=== PATIENT | male | born 1965 | race Caucasian/White ===

== ENCOUNTER 2017-02-03 22:04 | Inpatient (IN) | payer BC ==
[~2017-02-03] VITALS: Ht 185.4 cm; Wt 83.5 kg
[2017-02-03] MEDS ORDERED: NKM (22:15)
--- NOTE | 2017-02-03 22:43 | Emergency Room Report ---
History of Present Illness General Chief Complaint: Chest Pain Source: Patient Present Illness HPI 51-year-old male with hypertension, HIV positive on therapy, viral load undetectable, p/w chest pain for 2 hours. Chest pain started while he was in bed. Localized to substernal area, radiates to left arm, no radiation to back or other areas, sharp in nature, gradual in onset, lasted 120 min, few intermittent episodes. Occurred on rest. Denies SOB. Denies palpitations, diaphoresis, n/v. This is the first occurrence of chest pain. Denies fever, chills, cough, abd pain. Denies trauma. Last stress test was last week and the patient does not know his results yet Patient has never had a cardiac catheterization. Denies smoking, no family history of cardiac disease at a young age. Allergies: Coded Allergies: No Known Allergies (Verified Allergy, Unknown, 03/28/10) Patient History Past Medical History: see triage record Past Surgical History: none Pertinent Family History: none Reviewed Nursing Documentation: PMH: Agreed, PSxH: Agreed Review of Systems All Other Systems: negative except mentioned in HPI Physical Exam Vital Signs Date Time Temp Pulse Resp B/P (MAP) Pulse Ox O2 Delivery O2 Flow Rate FiO2 02/03/17 22:13 96.6 81 22 128/97 97 Room Air Sp02 EP Interpretation: reviewed, normal General Appearance: alert, GCS 15, non-toxic, moderate distress Head: normocephalic, atraumatic Eyes: bilateral eye normal inspection, bilateral eye PERRL, bilateral eye EOMI ENT: normal ENT inspection, normal pharynx, normal voice, moist mucus membranes Neck: normal inspection, full range of motion, supple Respiratory: normal inspection, lungs clear, normal breath sounds, no respiratory distress, no retraction, no wheezing, speaking full sentences, chest symmetrical Cardiovascular #1: normal inspection, regular rate, rhythm, no edema, normal capillary refill Cardiovascular #2: 2+ radial (R), 2+ radial (L) Gastrointestinal: normal inspection, non tender, soft, non-distended, no guarding Genitourinary: no CVA tenderness Musculoskeletal: normal inspection, back normal, normal range of motion, non- tender Neurologic: normal inspection, alert, oriented x3, responsive, motor strength/ tone normal, sensory intact, normal gait, speech normal Psychiatric: judgement/insight normal, memory normal, anxious Skin: normal inspection, normal color, no rash, warm/dry, well hydrated, normal turgor Medical Decision Making Diagnostic Impression: Primary Impression: Acute coronary syndrome ER Course 51-year-old male with chest pain DDX: ACS vs. CHF vs. pneumonia vs. gastritis/GERD vs. pneumothorax PE on differential however at this time there are other more likely diagnoses. Plan: IV access, obtain labs including troponin, EKG, CXR ASA, pain control with nitro / morphine Anticipate admission ER course: Patient was treated with ASA. Patient has remained on a monitor, HD stable, chest pain improved. Disposition: Patient requires admission for chest pain. Due to patient's history and comorbidities, patient has increased risk of acute cardiac event. Patient requires admission for further workup, serial troponin, and possible stress test/cath inpatient. D/W hospitalist Dr Kiran who has accepted patient for admission Please note that this Emergency Department Report was dictated using [email or web address] planner technology software, occasionally this can lead to erroneous entry secondary to interpretation by the dictation equipment. EKG Diagnostic Results EP Interpretation: Yes Rate: normal Rhythm: NSR ST Segments: No acute changes ASA given to patient: Yes Rhythm Strip EP Interpretation: Yes Rate: 80 Rhythm: NSR, no PVCs, no ectopy Chest X-ray CXR: Ordered: Yes 1 view Indication: Chest pain EP interpretation: Yes Interpretation: No consolidation, no effusion, no PTX, no acute cardiopulmonary disease Impression: No acute disease Electronically signed by Dimas Hendricks MD Laboratory Tests Test 02/03/17 22:20 White Blood Count 5.1 K/UL (4.8-10.8) Red Blood Count 4.56 M/UL (4.70-6.10) L Hemoglobin 14.5 G/DL (14.2-18.0) Hematocrit 45.6 % (42.0-52.0) Mean Corpuscular Volume 100 FL (80-99) H Mean Corpuscular Hemoglobin 31.8 PG (27.0-31.0) H Mean Corpuscular Hemoglobin Concent 31.8 G/DL (32.0-36.0) L Red Cell Distribution Width 11.3 % (11.6-14.8) L Platelet Count 159 K/UL (150-450) Mean Platelet Volume 6.2 FL (6.5-10.1) L Neutrophils (%) (Auto) 34.1 % (45.0-75.0) L Lymphocytes (%) (Auto) 54.5 % (20.0-45.0) H Monocytes (%) (Auto) 7.1 % (1.0-10.0) Eosinophils (%) (Auto) 2.9 % (0.0-3.0) Basophils (%) (Auto) 1.4 % (0.0-2.0) Sodium Level 142 MMOL/L (136-145) Potassium Level 3.8 MMOL/L (3.5-5.1) Chloride Level 107 MMOL/L (98-107) Carbon Dioxide Level 29 MMOL/L (21-32) Anion Gap 7 mmol/L (5-15) Blood Urea Nitrogen 30 mg/dL (7-18) H Creatinine 1.4 MG/DL (0.55-1.30) H Estimate Glomerular Filtration Rate 53.0 mL/min (>60) Glucose Level 116 MG/DL (74-106) H Calcium Level 9.0 MG/DL (8.5-10.1) Total Bilirubin 0.4 MG/DL (0.2-1.0) Aspartate Amino Transferase (AST) 20 U/L (15-37) Alanine Aminotransferase (ALT) 26 U/L (12-78) Alkaline Phosphatase 61 U/L (46-116) Total Creatine Kinase 153 U/L (26-308) Creatine Kinase MB 2.0 NG/ML (0.0-3.6) Creatine Kinase MB Relative Index 1.3 Troponin I 0.000 ng/mL (0.000-0.056) Pro-B-Type Natriuretic Peptide 47 pg/mL (0-125) Total Protein 7.0 G/DL (6.4-8.2) Albumin 3.5 G/DL (3.4-5.0) Globulin 3.5 g/dL Albumin/Globulin Ratio 1.0 (1.0-2.7) Last Vital Signs Date Time Temp Pulse Resp B/P (MAP) Pulse Ox O2 Delivery O2 Flow Rate FiO2 02/03/17 22:13 96.6 81 22 128/97 97 Room Air Disposition: ADMITTED INPATIENT Condition: Serious Dimas Hendricks M.D. Feb 03, 2017 22:43
[2017-02-03 23:09] LABS: BASOPHILS % (AUTO) 1.4 % (0.0-2.0); EOSINOPHILS % (AUTO) 2.9 % (0.0-3.0); LYMPHOCYTES % (AUTO) 54.5 % (20.0-45.0); MEAN CORPUSCULAR HEMOGLOBIN 31.8 PG (27.0-31.0); MEAN CORPUSCULAR HGB CONC 31.8 G/DL (32.0-36.0); MEAN CORPUSCULAR VOLUME 100 FL (80-99); MEAN PLATELET VOLUME 6.2 FL (6.5-10.1); MONOCYTES % (AUTO) 7.1 % (1.0-10.0); NEUTROPHILS % (AUTO) 34.1 % (45.0-75.0); PLATELET COUNT 159 K/UL (150-450); RED BLOOD COUNT 4.56 M/UL (4.70-6.10); RED CELL DISTRIBUTION WIDTH 11.3 % (11.6-14.8); WHITE BLOOD COUNT 5.1 K/UL (4.8-10.8)
[2017-02-03 23:28] LABS: ALANINE AMINOTRANSFERASE 26 U/L (12-78); ANION GAP 7 mmol/L (5-15); ASPARTATE AMINO TRANSFERASE 20 U/L (15-37); CARBON DIOXIDE 29 MMOL/L (21-32); CHLORIDE 107 MMOL/L (98-107); CREATININE 1.4 MG/DL (0.55-1.30); POTASSIUM 3.8 MMOL/L (3.5-5.1); SODIUM 142 MMOL/L (136-145)
[2017-02-04] VITALS (8 sets, daily range): BP systolic 112–133; BP diastolic 72–95
[2017-02-04] MEDS ORDERED: DESCOVY 200-251 EACH PO (03:27)
[2017-02-04] MEDS ORDERED: TIVICAY50 MG ORAL (03:27)
[2017-02-04] MEDS ORDERED: TRAZODONE HCL50 MG ORAL (03:27)
[2017-02-04] MEDS ORDERED: VOLTAREN50 MG PO (03:27)
--- NOTE | 2017-02-04 11:02 | Diagnostic Imaging Report ---
Indication: PAIN chest pain Technique: One view of the chest Comparison: none Findings: Lungs and pleural spaces are clear. Heart size is normal. Impression: No acute process
--- NOTE | 2017-02-04 13:08 | Cardiology Progress Note ---
Assessment/Plan Assessment/Plan [id number] Objective Last 24 Hour Vital Signs Date Time Temp Pulse Resp B/P (MAP) Pulse Ox O2 Delivery O2 Flow Rate FiO2 02/04/17 12:00 97.5 89 21 112/77 96 Room Air 02/04/17 08:00 97.7 70 19 112/72 96 Room Air 02/04/17 08:00 67 02/04/17 04:00 65 02/04/17 04:00 97.7 66 20 112/73 97 Room Air 02/04/17 01:30 75 02/04/17 01:30 97.7 77 20 123/80 94 Room Air 02/04/17 01:20 97.4 84 22 126/88 95 Room Air 02/04/17 01:20 77 19 127/90 95 Room Air 02/04/17 00:12 97.4 84 22 126/88 95 Room Air 02/03/17 22:15 81 22 Room Air 02/03/17 22:13 96.6 81 22 128/97 97 Room Air Intake and Output 02/04/17 02/05/17 19:00 07:00 # Bowel Movements 1 Laboratory Tests Test 02/03/17 22:20 02/04/17 04:15 02/04/17 12:00 White Blood Count 5.1 K/UL (4.8-10.8) Red Blood Count 4.56 M/UL (4.70-6.10) L Hemoglobin 14.5 G/DL (14.2-18.0) Hematocrit 45.6 % (42.0-52.0) Mean Corpuscular Volume 100 FL (80-99) H Mean Corpuscular Hemoglobin 31.8 PG (27.0-31.0) H Mean Corpuscular Hemoglobin Concent 31.8 G/DL (32.0-36.0) L Red Cell Distribution Width 11.3 % (11.6-14.8) L Platelet Count 159 K/UL (150-450) Mean Platelet Volume 6.2 FL (6.5-10.1) L Neutrophils (%) (Auto) 34.1 % (45.0-75.0) L Lymphocytes (%) (Auto) 54.5 % (20.0-45.0) H Monocytes (%) (Auto) 7.1 % (1.0-10.0) Eosinophils (%) (Auto) 2.9 % (0.0-3.0) Basophils (%) (Auto) 1.4 % (0.0-2.0) Sodium Level 142 MMOL/L (136-145) Potassium Level 3.8 MMOL/L (3.5-5.1) Chloride Level 107 MMOL/L (98-107) Carbon Dioxide Level 29 MMOL/L (21-32) Anion Gap 7 mmol/L (5-15) Blood Urea Nitrogen 30 mg/dL (7-18) H Creatinine 1.4 MG/DL (0.55-1.30) H Estimat Glomerular Filtration Rate 53.0 mL/min (>60) Glucose Level 116 MG/DL (74-106) H Calcium Level 9.0 MG/DL (8.5-10.1) Total Bilirubin 0.4 MG/DL (0.2-1.0) Aspartate Amino Transf (AST/SGOT) 20 U/L (15-37) Alanine Aminotransferase (ALT/SGPT) 26 U/L (12-78) Alkaline Phosphatase 61 U/L (46-116) Total Creatine Kinase 153 U/L (26-308) Creatine Kinase MB 2.0 NG/ML (0.0-3.6) Creatine Kinase MB Relative Index 1.3 Troponin I 0.000 ng/mL (0.000-0.056) 0.097 ng/mL (0.000-0.056) Pending Pro-B-Type Natriuretic Peptide 47 pg/mL (0-125) Total Protein 7.0 G/DL (6.4-8.2) Albumin 3.5 G/DL (3.4-5.0) Globulin 3.5 g/dL Albumin/Globulin Ratio 1.0 (1.0-2.7) MAXIMO CHILDERS Feb 04, 2017 13:08
[2017-02-04 14:49] LABS: MEAN CORPUSCULAR HEMOGLOBIN 32.3 PG (27.0-31.0); MEAN CORPUSCULAR HGB CONC 32.7 G/DL (32.0-36.0); MEAN CORPUSCULAR VOLUME 99 FL (80-99); MEAN PLATELET VOLUME 6.4 FL (6.5-10.1); PLATELET COUNT 194 K/UL (150-450); RED BLOOD COUNT 5.04 M/UL (4.70-6.10); RED CELL DISTRIBUTION WIDTH 11.1 % (11.6-14.8); WHITE BLOOD COUNT 3.8 K/UL (4.8-10.8)
[2017-02-04] MEDS ORDERED: Heparin 25,000u/D5W 500ml 500 ML IV SCH ×2 (15:15→22:30)
[2017-02-04 15:52] LABS: BAND NEUTROPHILS % (MANUAL) 0 % (0-8); BASOPHILS % (MANUAL) 0 % (0-2); EOSINOPHILS % (MANUAL) 5 % (0-3); LYMPHOCYTES % (MANUAL) 57 % (20-45); NEUTROPHILS % (MANUAL) 31 % (45-75); PLATELET ESTIMATE ADEQUATE; TOTAL CELLS COUNTED 100
[2017-02-04 15:53] LABS: PLATELET MORPHOLOGY NORMAL
[2017-02-04] MEDS: Aspirin Baby 81mg ORAL SCH (16:08)
[2017-02-04] MEDS ORDERED: TraZODone 50mg tab ORAL PRN (21:00)
[2017-02-04] MEDS ORDERED: Dolutegravir Sodium 50mg tab ORAL SCH (21:00)
[2017-02-04] MEDS ORDERED: DESCOVY ORAL SCH (21:00)
--- NOTE | 2017-02-04 21:00 | History and Physical Report ---
DATE OF ADMISSION: 02/03/2017 CHIEF COMPLAINT: Chest pain. HISTORY OF PRESENT ILLNESS: This 51-year-old man with HIV, complained of two hours of chest pain. He presented to the emergency department. The pain was in the substernal area radiating to the left arm. He had pain for about two hours. He had no shortness of breath or palpitations. No diaphoresis. The pain resolved. He was admitted for cardiac evaluation. Since admission, the troponin went from normal to mildly elevated. PAST MEDICAL HISTORY: The patient has HIV, but states his T-cells are normal and viral load is nondetectable. He has no history of hypertension, diabetes, smoking or hyperlipidemia. He has no history of prior cardiac disease. There is no family history of cardiac disease. He has history of osteoarthritis in the knees and shoulders and has had arthroscopy in the past. He has no history of HIV-related illness or tumors. MEDICATIONS: Reviewed and reconciled. ALLERGIES: None. REVIEW OF SYSTEMS: Otherwise, unremarkable. PHYSICAL EXAMINATION: GENERAL: The patient is a muscular, well developed and well nourished and appears to be his stated age. VITAL SIGNS: Normal. HEENT: Head is normocephalic. NECK: No jugular venous distention. CHEST: Clear. CARDIAC: Rhythm is regular without murmur, rub, or gallop. ABDOMEN: Soft and nontender. Liver and spleen not enlarged. EXTREMITIES: No clubbing, cyanosis, or edema. LABORATORY AND DIAGNOSTIC DATA: Chest x-ray is clear. Troponin isabela from 0.02 to 0.01 and then to 0.4. Abnormal laboratory tests included blood sugar 116 and creatinine 1.4. IMPRESSION: 1. Acute coronary syndrome with elevated troponin. 2. Human immunodeficiency virus infection with control of virus on medication. 3. Chronic kidney disease stage 2. 4. Osteoarthritis. PLAN: The patient had been evaluated by Cardiology. Repeat troponin will be obtained as well as an echocardiogram. He may require a further testing in view of the rising troponin. Alon Kiran M.D. DR: ISH JOB#: [id number] CC: Alon Kiran M.D.; Fax#: [phone] MAXIMO CHILDERS M.D. ; FAX#: [phone]
[2017-02-04] MEDS ORDERED: Heparin 5000 units/ml inj IV ONE (22:30)
[2017-02-04] MEDS: Heparin 25,000u/D5W 500ml 500 ML IV SCH (22:41)
[2017-02-05] VITALS: BP 111/78
--- NOTE | 2017-02-05 06:01 | Consultation ---
DATE OF CONSULTATION: 02/04/2017 CARDIOLOGY CONSULTATION CONSULTING PHYSICIAN: Unruly Hull M.D. REFERRING PHYSICIAN: Alon Kiran M.D. ATTENDING PHYSICIAN: Alon Kiran M.D. REASON FOR REFERRAL: Chest pain. HISTORY OF PRESENT ILLNESS: This is a 51-year-old gentleman who apparently was experiencing some discomfort in the chest last night. He took his blood pressure. His blood pressure was elevated. He started having some sensation on the lateral aspect of his left arm, so he came to the emergency room. He had the discomfort for at least 4 hours, possibly longer. He fell asleep eventually. This morning when he woke up here, he did not have any discomfort. There is no PND or orthopnea. There is no palpitation. No shortness of breath on exertion. He is not as active as he used to be, although he used to be able to mess around on a regular basis up to approximately 6 months ago and now because of his knee and arm issues, he is not doing that. 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 He has never had this discomfort before. He did not have any relieving or exacerbating factors noted with the episode of chest pain. PAST MEDICAL HISTORY: Positive only for HIV. No other medical problems. He may have a touch of arthritis. ALLERGIES: He is not allergic to any medications. SOCIAL HISTORY: He does not smoke at this time. Socially, he drinks alcoholic beverages. Last time he smoke was approximately 1 year ago. REVIEW OF SYSTEMS: GASTROINTESTINAL: Negative. GENITOURINARY: Negative. PULMONARY: Negative. CONSTITUTIONAL: Negative. NEUROLOGICAL: Numbness and tingling sensation in the lateral aspect of both of his feet. PHYSICAL EXAMINATION: GENERAL: Physical examination shows him to be a middle-aged gentleman, in no respiratory distress. NECK: Supple. No jugular venous distention. No abdominojugular reflux noted. LUNGS: Clear to auscultation and percussion. CARDIAC EXAMINATION: S1 is normal. S2 is normal. Regular rate and rhythm. No heaves, thrills, gallops, or rubs noted. ABDOMEN: Soft and nontender. Positive bowel sounds. EXTREMITIES: There is no edema, clubbing, or cyanosis. Chest wall is nontender to palpation. LABORATORY AND DIAGNOSTIC DATA: White count of 5.1, hemoglobin 14.5, and platelet count of 159. Sodium is 142, potassium 3.8, chloride 107, bicarbonate 29, BUN 30, creatinine 1.4, and glucose of 116. Liver function tests were all normal. Troponin was 0.00, the second one was 0.097, and third one is pending. Liver function tests were negative. His chest x-ray performed in the emergency room showed no acute processes. He did have an EKG performed in the emergency room that showed really no significant ST or T-wave abnormalities of a significant degree. ASSESSMENT AND PLAN: 1. Chest pain. 2. Abnormal cardiac enzymes. 3. History of human immunodeficiency virus. Dr. Kiran, this patient was seen in cardiac consultation. The patient is not experiencing any chest pain. His chest pain lasted approximately 4 hours. His first set of cardiac enzymes were negative, however, the second one is mildly elevated and third one is pending at this time. I think he needs to have further testing performed. He reportedly had a stress test at his doctor's office. He does not know the results. I have asked him to have his doctor send a copy of that results to me. Nevertheless, because of his abnormality on the second cardiac enzyme, I think further testing is warranted including an echocardiogram and may require other testing as well. I will follow the patient with you. Unruly Hull M.D. DR: ELNORE JOB#: [id number] CC:
[2017-02-05 07:03] LABS: ALANINE AMINOTRANSFERASE 31 U/L (12-78); ALBUMIN/GLOBULIN RATIO 0.9 (1.0-2.7); ANION GAP 9 mmol/L (5-15); ASPARTATE AMINO TRANSFERASE 23 U/L (15-37); CALCIUM 9.4 MG/DL (8.5-10.1); CARBON DIOXIDE 26 MMOL/L (21-32); CHLORIDE 107 MMOL/L (98-107); CHOLESTEROL 188 MG/DL (< 200); CHOLESTEROL/HDL RATIO 2.2 (3.3-4.4); CREATININE 1.2 MG/DL (0.55-1.30); GLOMERULAR FILTRATION RATE > 60 mL/min (>60); SODIUM 142 MMOL/L (136-145); THYROID STIMULATING HORMONE 2.098 uiU/mL (0.360-3.740); TOTAL PROTEIN 7.6 G/DL (6.4-8.2)
[2017-02-05] MEDS ORDERED: Heparin 5000 units/ml inj INJ ONE (07:30)
[2017-02-05] MEDS: Heparin 25,000u/D5W 500ml 500 ML IV SCH ×3 (07:53→16:16)
[2017-02-05 08:00] VITALS: BP 121/82
[2017-02-05] MEDS: Aspirin Baby 81mg ORAL SCH (08:10)
[2017-02-05 12:00] VITALS: BP 122/81
--- NOTE | 2017-02-05 12:02 | Cardiology Progress Note ---
Assessment/Plan Assessment/Plan 1. Chest pain./ nstemi 2. Abnormal cardiac enzymes. 3. History of human immunodeficiency virus. some ekg strip supposedly form his stress test at him pmd office not st depression and afib? no interpretation available his trop min increased over yest ekg with some t inversion inferior lead i have recommended and place pt name of [facility] they are full family have asked about possible [facility] or other hospital which they will have to find a flooring salesperson that would accept so we can arrange transfer there if desired or the other option [facility] Ecotrin statin heparin for now follwo trop curve and serial ekg Subjective Cardiovascular: Denies: chest pain, lightheadedness, palpitations Respiratory: Denies: shortness of breath Gastrointestinal/Abdominal: Denies: abdomen distended Genitourinary: Denies: burning Objective Last 24 Hour Vital Signs Date Time Temp Pulse Resp B/P (MAP) Pulse Ox O2 Delivery O2 Flow Rate FiO2 02/05/17 08:00 97.2 108 20 121/82 97 Room Air 02/05/17 08:00 91 02/05/17 04:00 74 02/05/17 00:00 74 02/05/17 00:00 97.1 79 20 111/78 96 Room Air 02/04/17 21:19 86 02/04/17 20:00 97.1 85 20 133/95 96 Room Air 02/04/17 16:00 97.1 90 20 125/80 96 Room Air 02/04/17 16:00 88 General Appearance: alert Neck: supple Cardiovascular: normal rate, regular rhythm Respiratory/Chest: lungs clear Abdomen: normal bowel sounds, non tender, soft Extremities: no swelling Intake and Output 02/05/17 02/06/17 19:00 07:00 # Bowel Movements 1 Laboratory Tests Test 02/04/17 14:30 02/04/17 14:37 02/04/17 21:25 02/05/17 06:00 White Blood Count 3.8 K/UL (4.8-10.8) L Red Blood Count 5.04 M/UL (4.70-6.10) Hemoglobin 16.3 G/DL (14.2-18.0) Hematocrit 49.8 % (42.0-52.0) Mean Corpuscular Volume 99 FL (80-99) Mean Corpuscular Hemoglobin 32.3 PG (27.0-31.0) H Mean Corpuscular Hemoglobin Concent 32.7 G/DL (32.0-36.0) Red Cell Distribution Width 11.1 % (11.6-14.8) L Platelet Count 194 K/UL (150-450) Mean Platelet Volume 6.4 FL (6.5-10.1) L Neutrophils (%) (Auto) % (45.0-75.0) Lymphocytes (%) (Auto) % (20.0-45.0) Monocytes (%) (Auto) % (1.0-10.0) Eosinophils (%) (Auto) % (0.0-3.0) Basophils (%) (Auto) % (0.0-2.0) Differential Total Cells Counted 100 Neutrophils % (Manual) 31 % (45-75) L Lymphocytes % (Manual) 57 % (20-45) H Monocytes % (Manual) 7 % (1-10) Eosinophils % (Manual) 5 % (0-3) H Basophils % (Manual) 0 % (0-2) Band Neutrophils 0 % (0-8) Platelet Estimate Adequate Platelet Morphology Normal Red Blood Cell Morphology Normal Activated Partial Thromboplast Time 26 SEC (23-33) 32 SEC (23-33) 63 SEC (23-33) H D-Dimer 0.42 mg/L FEU (0.00-0.49) Troponin I 0.516 ng/mL (0.000-0.056) Sodium Level 142 MMOL/L (136-145) Potassium Level 4.0 MMOL/L (3.5-5.1) Chloride Level 107 MMOL/L (98-107) Carbon Dioxide Level 26 MMOL/L (21-32) Anion Gap 9 mmol/L (5-15) Blood Urea Nitrogen 18 mg/dL (7-18) Creatinine 1.2 MG/DL (0.55-1.30) Estimat Glomerular Filtration Rate > 60 mL/min (>60) Glucose Level 102 MG/DL (74-106) Calcium Level 9.4 MG/DL (8.5-10.1) Total Bilirubin 0.7 MG/DL (0.2-1.0) Aspartate Amino Transf (AST/SGOT) 23 U/L (15-37) Alanine Aminotransferase (ALT/SGPT) 31 U/L (12-78) Alkaline Phosphatase 52 U/L (46-116) Total Protein 7.6 G/DL (6.4-8.2) Albumin 3.6 G/DL (3.4-5.0) Globulin 4.0 g/dL Albumin/Globulin Ratio 0.9 (1.0-2.7) L Triglycerides Level 50 MG/DL (0-200) Cholesterol Level 188 MG/DL (< 200) LDL Cholesterol 104 mg/dL (<100) H HDL Cholesterol 86 MG/DL (40-60) H Cholesterol/HDL Ratio 2.2 (3.3-4.4) L Prostate Specific Antigen 1.0 ng/mL (0.0-4.0) Thyroid Stimulating Hormone (TSH) 2.098 uiU/mL (0.360-3.740) Total Testosterone Pending Test 02/05/17 06:21 Troponin I 0.512 ng/mL (0.000-0.056) MAXIMO CHILDERS Feb 05, 2017 12:02
--- NOTE | 2017-02-05 13:44 | Pulmonology Progress Note ---
Assessment/Plan Assessment/Plan IMPRESSION: 1. Acute coronary syndrome with elevated troponin. 2. Human immunodeficiency virus infection with control of virus on medication. 3. Chronic kidney disease stage 2. 4. Osteoarthritis. PLAN: troponins trending seen by cards heparin per rx asa hld treatment await tx to [facility] for cath Subjective HEENT: Repors: no symptoms Respiratory: Reports: no symptoms Cardiovascular: Reports: chest pain Gastrointestinal/Abdominal: Reports: no symptoms Allergies: Coded Allergies: No Known Allergies (Verified Allergy, Unknown, 03/28/10) Subjective still with intermittent cp on heparin no fever or b leeding tolerating po awaiting transfer to [facility] for cath Objective Last 24 Hour Vital Signs Date Time Temp Pulse Resp B/P (MAP) Pulse Ox O2 Delivery O2 Flow Rate FiO2 02/05/17 12:00 97.2 81 20 122/81 98 Room Air 02/05/17 08:00 97.2 108 20 121/82 97 Room Air 02/05/17 08:00 91 02/05/17 04:00 74 02/05/17 00:00 74 02/05/17 00:00 97.1 79 20 111/78 96 Room Air 02/04/17 21:19 86 02/04/17 20:00 97.1 85 20 133/95 96 Room Air 02/04/17 16:00 97.1 90 20 125/80 96 Room Air 02/04/17 16:00 88 Intake and Output 02/05/17 02/06/17 19:00 07:00 # Bowel Movements 1 General Appearance: WD/WN HEENT: atraumatic, anicteric Respiratory/Chest: lungs clear, normal breath sounds Cardiovascular: normal rate, regular rhythm Abdomen: soft, non tender, no organomegaly Skin: no rash, no lesions Neurologic/Psychiatric: no motor/sensory deficits, oriented x 3, responsive Lymphatic: no neck adenopathy, no groin adenopathy Musculoskeletal: no effusion Laboratory Tests 02/04/17 14:30: White Blood Count 3.8L, Red Blood Count 5.04, Hemoglobin 16.3, Hematocrit 49.8, Mean Corpuscular Volume 99, Mean Corpuscular Hemoglobin 32.3H, Mean Corpuscular Hemoglobin Concent 32.7, Red Cell Distribution Width 11.1L, Platelet Count 194, Mean Platelet Volume 6.4L, Neutrophils (%) (Auto) , Lymphocytes (%) (Auto) , Monocytes (%) (Auto) , Eosinophils (%) (Auto) , Basophils (%) (Auto) , Differential Total Cells Counted 100, Neutrophils % (Manual) 31L, Lymphocytes % (Manual) 57H, Monocytes % (Manual) 7, Eosinophils % (Manual) 5H, Basophils % ( Manual) 0, Band Neutrophils 0, Platelet Estimate Adequate, Platelet Morphology Normal, Red Blood Cell Morphology Normal 02/04/17 14:37: Activated Partial Thromboplast Time 26, D-Dimer 0.42 02/04/17 21:25: Activated Partial Thromboplast Time 32, Troponin I 0.516H 02/05/17 06:00: Activated Partial Thromboplast Time 63H, Sodium Level 142, Potassium Level 4.0, Chloride Level 107, Carbon Dioxide Level 26, Anion Gap 9, Blood Urea Nitrogen 18 , Creatinine 1.2, Estimat Glomerular Filtration Rate > 60, Glucose Level 102, Calcium Level 9.4, Total Bilirubin 0.7, Aspartate Amino Transf (AST/SGOT) 23, Alanine Aminotransferase (ALT/SGPT) 31, Alkaline Phosphatase 52, Total Protein 7.6, Albumin 3.6, Globulin 4.0, Albumin/Globulin Ratio 0.9L, Triglycerides Level 50, Cholesterol Level 188, LDL Cholesterol 104H, HDL Cholesterol 86H, Cholesterol/HDL Ratio 2.2L, Prostate Specific Antigen 1.0, Thyroid Stimulating Hormone (TSH) 2.098, Total Testosterone [Pending] 02/05/17 06:21: Troponin I 0.512H Current Medications Medications (Trade) Dose Ordered Sig/Audie Route PRN Reason Start Time Stop Time Status Last Admin Dose Admin Aspirin (ASA) 81 mg DAILY ORAL 02/04/17 15:30 03/06/17 15:29 02/05/17 08:10 Atorvastatin Calcium (Lipitor) 40 mg BEDTIME ORAL 02/04/17 21:00 03/06/17 20:59 02/04/17 20:33 Dextrose (Dextrose 50%) STAT PRN IV Hypoglycemia 02/04/17 03:15 03/06/17 03:14 Heparin Sodium/ Dextrose 500 ml @ 30.046 mls/ hr adjust per protocol IV 02/04/17 22:45 03/06/17 22:44 02/05/17 09:44 Patient Own Medication (Patient's Own Med) 1 ea BEDTIME ORAL 02/04/17 21:00 03/06/17 20:59 02/04/17 20:33 Patient Own Medication (Patient's Own Med) 1 ea BEDTIME ORAL 02/04/17 21:00 03/06/17 20:59 02/04/17 20:33 Trazodone HCl (Desyrel) 50 mg BEDTIME PRN ORAL Insomnia 02/04/17 21:00 03/06/17 20:59 HAIM DURAN DO Feb 05, 2017 13:44
[2017-02-05 16:00] VITALS: BP 117/75
[2017-02-05] MEDS ORDERED: Heparin 5000 units/ml inj IV ONE (16:00)
[2017-02-05] MEDS ORDERED: Tubing IV Secondary IV ONE (16:30)
[2017-02-05] MEDS ORDERED: Sterile Water Irrig 1000ml IRRIG ONE (16:30)
[2017-02-05] MEDS ORDERED: 1/2 NS 1000ml IV ONE (16:30)
[2017-02-05] MEDS ORDERED: Atorvastatin 20mg tab ORAL SCH (21:00)
--- NOTE | 2017-02-06 17:39 | Cardiology Report ---
APPROVED REPORT EXAM: Two-dimensional and M-mode echocardiogram with Doppler and color Doppler. INDICATION Chest Pain M-Mode DIMENSIONS IVSd0.6 (0.7-1.1cm)Left Atrium (MM)2.4 (1.6-4.0cm) LVDd3.5 (3.5-5.6cm)Aortic Root3.9 (2.0-3.7cm) PWd0.7 (0.7-1.1cm)Aortic Cusp Exc.2.3 (1.5-2.0cm) LVDs2.5 (2.5-4.0cm) PWs0.6 cm Normal left ventricular chamber size, systolic function and wall motion. Left ventricular ejection fraction estimated to be 50-55%. No evidence of left ventricular hypertrophy. No evidence of pericardial or pleural effusion. All other cardiac chamber sizes are within normal limits. Focal aortic valve sclerosis with adequate cusp excursion. Aortic root dialated. Thickened mitral valve leaflets with normal excursion. Mild mitral annulus and aortic root calcification. Pulmonic valve not well visualized. Normal tricuspid valve structure. IVC is normal in size and collapsible with respiration. A color flow and spectral Doppler study was performed and revealed: No aortic regurgitation. No mitral regurgitation. Mitral diastolic velocities suggest reduced left ventricular relaxation c/w diastolic dysfunction grade 1. No tricuspid regurgitation. Pulmonic regurgitation present.
--- NOTE | 2017-02-06 18:38 | Cardiology Report ---
APPROVED REPORT EKG Measurement Heart [id number] DC [id number] Normal sinus rhythm Normal ECG non specific st changes
--- NOTE | 2017-02-06 18:40 | Cardiology Report ---
APPROVED REPORT EKG Measurement Heart [id number] DC [id number] Normal sinus rhythm non specific st changes
--- NOTE | 2017-02-06 18:43 | Cardiology Report ---
APPROVED REPORT EKG Measurement Heart [id number] VA 166P22 [id number] Normal sinus rhythm Normal ECG
--- NOTE | 2017-02-07 11:21 | Diagnostic Imaging Report ---
APPROVED REPORT CPT Code: 87905 Present Symptoms Comments: Chest Pain. BILATERAL: Imaging reveals a patent deep venous system bilaterally. There is no evidence of thrombus within the femoral, popliteal or tibial segments. The greater saphenous veins are also within normal limits. Doppler indicates normal spontaneous flow within these segments.
--- NOTE | 2017-02-07 12:22 | Discharge Summary ---
Discharge Summary Hospital Course Date of Admission Feb 03, 2017 at 22:57 Date of Discharge Feb 05, 2017 at 18:40 Admitting Diagnosis ACUTE CORONARY SYNDROME HPI Gearld Lopez is a 51 year old male who was admitted on Feb 03, 2017 at 22:57 for Acute Coronary Syndrome Hospital Course dc summary #[id number] Discharge Discharge Disposition Patient was transferred to [facility] for cardiac cath Discharge Diagnoses: Discharge Instructions Discharge Instructions Special Instructions I have been assigned to complete a D/C Summary on this account. I was not involved in the patient management Yamila Santiago NP (Vanchtein) Feb 07, 2017 12:22
--- NOTE | 2017-02-08 04:46 | Discharge Summary 2 SIG ---
DATE OF ADMISSION: 02/03/2017 DATE OF DISCHARGE: 02/05/2017 REASON FOR ADMISSION: 51-year-old male with history of HIV, and chronic kidney disease stage 2, presented with a complaint of chest pain. Pain reported to be in substernal area, radiating to the left arm. Pain lasted for two hours. No associated shortness of breath. No palpitations. No diaphoresis. Pain eventually resolved. Patient was admitted to rule out acute coronary syndrome. HOSPITAL COURSE: First troponin was negative. Second troponin was elevated - 0.097. The patient was started on heparin drip, aspirin, as well as the statin. Lipid panel revealed borderline LDL -104, total cholesterol -188, and triglycerides - 50. Next troponin with trend up - 0.401. Echocardiogram revealed ejection fraction of 50% to 55%. No evidence of valve dysfunction. Cardiology consult was requested. Next troponin was up again- 0.516 and after that - 0.512. Magneto Repairer reviewed all telemetry and EKG. Magneto Repairer recommended cardiac catheterization. The patient was placed on the waiting list for transfer. The patient has a history of chronic kidney disease. stage 2. On admission, BUN -30 and creatinine -1.4. Prior to discharge, BUN down to 18 and creatinine down to 1.2. HAART therapy was resumed. Pain management was provided. On 02/05/2017 bed became available at [facility], and the patient was transferred for cardiac catheterization to [facility] via [facility] ambulance. FINAL DIAGNOSES: 1. Chest pain. 2. Oaz-FJ-vltlcoys myocardial infarction. 3. Human immunodeficiency virus status. 4. Chronic kidney disease stage 2. 5. Osteoarthritis. DISCHARGE MEDICATIONS: List of medication was sent to admitting facility. DISCHARGE INSTRUCTIONS: The patient was transferred to [facility] for cardiac catheterization. Follow up with admitting physician and farmer vegetable at the facility. Alon Kiran M.D. I have been assigned to dictate discharge summary on this account and I was not involved in the patient's management. Yamila Santiago N.P. (Vanchtein) DR: Gurpreet JOB#: [id number] CC: [id number]
[2017-02-11 10:06] LABS: TESTOSTERONE TOTAL (LC/MS/MS) 457 ng/dL (.)
== END 2017-02-05 18:40 | disposition short-term general hospital (02) | DRG 280 ==
LOC: EMR 22:56 → 2E 22:57 → EDBEDREQ 23:50
DX: I21.4 Non-ST elevation (NSTEMI) myocardial infarction (principal); B20 Human immunodeficiency virus [HIV] disease; N18.2 Chronic kidney disease, stage 2 (mild); M19.90 Unspecified osteoarthritis, unspecified site; Z87.891 Personal history of nicotine dependence
CPT/HCPCS: 36415; 71010; 80053; 80061; 82550; 82553; 83880; 84153; 84403; 84443; 84484; 85007; 85025; 85379; 85730; 93005; 93306; 93970; 99285